=== PATIENT | male | born 1995 | race Caucasian/White ===

== ENCOUNTER 2016-10-15 23:46 | Emergency (ER) | payer MEDICAID ==
[2016-10-16] MEDS ORDERED: Ibuprofen 600 MG Tab PO ONE (00:21)
--- NOTE | 2016-10-16 00:25 | EDM.PDOC ---
ED HPI GENERAL MEDICAL PROBLEM - General Chief Complaint: Head Injury Stated Complaint: POSSIBLE CONCUSSION/HIT HEAD Time Seen by Provider: 10/16/16 00:14 - History of Present Illness INITIAL COMMENTS - FREE TEXT/NARRATIVE: HISTORY AND PHYSICAL: History of present illness: [The patient is a healthy 21-year-old male who presents with complaints of left- sided face head and ear pain that started about 4 hours ago after he fell hitting the area while waveboarding. Patient states he was in his usual state of good health with no systemic complaints when he was going over the top of the wave and then proceeded to go downward and landed on his left side hitting the left side of his head. He did not pass out or blacked out but felt incredibly dizzy and off-balance when it first happened. He doesn't have any facial pain but he has pain in his head pain behind his left eye and mostly pain in his ear. He has had no drainage or bleeding from his nose mouth or ears. He has no neck or back pain. He said no nausea vomiting or any other extremity complaints. He has no chest pain or shortness of breath. Patient has not taken anything for the pain Review of systems: As per history of present illness and below otherwise all systems reviewed and negative. Past medical history: As per history of present illness and as reviewed below otherwise noncontributory. Surgical history: As per history of present illness and as reviewed below otherwise noncontributory. Social history: No reported history of drug or alcohol abuse. Family history: As per history of present illness and as reviewed below otherwise noncontributory. Physical exam: Gen.: Well-developed well-nourished male who is nontoxic and speaking clearly in the ED. Vital signs of been reviewed by me HEENT: Atraumatic, normocephalic, pupils reactive, EOMs intact, there is no evidence of any facial swelling or palpable bony deformities and bite and teeth are intact, negative for conjunctival pallor or scleral icterus, mucous membranes moist, throat clear, neck supple, nontender, trachea midline. There are no midline step-offs in his defects of the cervical spine. The right TM is within normal limits and there is no fluid in external canal. The left TM has no fluid in external canal but there is clearly a perforation located at approximately 1 to 2:00 on the TM with some scant bleeding noted in the region and there is tenderness with this exam. There is no mastoid tenderness. There is no evidence of any external trauma to the ear or the facial the left side and there is no scalp swelling or deformities appreciated in this area. Lungs: Clear to auscultation, breath sounds equal bilaterally, chest nontender. Heart: S1S2, regular rate and rhythm no overt murmurs Abdomen: Soft, nondistended, nontender. NABS Skin: Normal turgor no evidence of any rashes or lesions Genitourinary: Deferred. Rectal: Deferred. Extremities: Atraumatic, negative for cords or calf pain. Neurovascular unremarkable. Full range of motion without any defects or deformities Neuro: Awake, alert, oriented. Cranial nerves II through XII unremarkable. Cerebellum unremarkable. Motor and sensory unremarkable throughout. Exam nonfocal. Diagnostics: CT of the head Therapeutics: Motrin Patient is aware of CT scan results and need for antibiotics, tramadol for pain as well as [id number] pain meds and close follow-up. I've also advised him to place nothing in the ear and get no water in the ear. Impression: Blunt head trauma with mild concussion and perforated left eardrum Definitive disposition and diagnosis as appropriate pending reevaluation and review of above. Left Face Pain Score (Numeric/FACES): 7 - Related Data Allergies Allergy/AdvReac Type Severity Reaction Status Date / Time No Known Allergies Allergy Verified 10/16/16 00:01 Home Meds: Home Meds Etanercept [Enbrel] 50 mg SQ ASDIRECTED 10/16/16 [History] Past Medical History Other Musculoskeletal History: ankyolising spondilitis - Past Surgical History Musculoskeletal Surgical History: Reports: None Social & Family History - Family History Family Medical History: Noncontributory - Tobacco Use Smoking Status *Q: Never Smoker Second Hand Smoke Exposure: No - Caffeine Use Caffeine Use: Reports: Coffee Caffeine Use Comment: "occasionally" - Recreational Drug Use Recreational Drug Use: No ED ROS GENERAL - Review of Systems Review Of Systems: ROS reveals no pertinent complaints other than HPI. ED EXAM, HEAD INJURY - Physical Exam Exam: See Below (See dictation) Course - Vital Signs Last Recorded V/S: Last Vital Signs Temp 36.2 C 10/15/16 23:57 Pulse 56 L 10/15/16 23:57 Resp 18 10/15/16 23:57 BP 137/96 H 10/15/16 23:57 Pulse Ox 100 10/15/16 23:57 - Orders/Labs/Meds Orders: Active Orders 24 hr Category Date Time Status Head wo Cont [CT] Routine Exams 10/16/16 00:42 Taken Meds: Medications Discontinued Medications Generic Name Dose Route Start Last Admin Trade Name Kody PRN Reason Stop Dose Admin Ibuprofen 600 mg 10/16/16 00:21 10/16/16 00:26 Motrin PO 10/16/16 00:22 600 mg ONETIME ONE Administration Departure - Departure Time of Disposition: 02:01 Disposition: Home, Self-Care 01 Condition: Good Clinical Impression: Perforated left tympanic membrane on examination Concussion Qualifiers: Encounter type: initial encounter Loss of consciousness presence/duration: without LOC Qualified Code(s): S06.0X0A - Concussion without loss of consciousness, initial encounter - Discharge Information Referrals: PCP,None [Primary Care Provider] - Forms: ED Department Discharge Additional Instructions: The following information is given to patients seen in the emergency department who are being discharged to home. This information is to outline your options for follow-up care. We provide all patients seen in our emergency department with a follow-up referral. The need for follow-up, as well as the timing and circumstances, are variable depending upon the specifics of your emergency department visit. If you don't have a primary care physician on staff, we will provide you with a referral. We always advise you to contact your personal physician following an emergency department visit to inform them of the circumstance of the visit and for follow-up with them and/or the need for any referrals to a consulting specialist. The emergency department will also refer you to a specialist when appropriate. This referral assures that you have the opportunity for followup care with a specialist. All of these measure are taken in an effort to provide you with optimal care, which includes your followup. Under all circumstances we always encourage you to contact your private physician who remains a resource for coordinating your care. When calling for followup care, please make the office aware that this follow-up is from your recent emergency room visit. If for any reason you are refused follow-up, please contact the [facility] emergency department at and ask to speak to the emergency department charge nurse. [facility] Primary care- Internal Medicine and Family Prct[address] [place] [phone] [facility] Specialty Care - ENT [address] [place] [phone] nothing in the ear including Q-tips and avoid getting water in the ear when you're showering until you are followed up. Please take antibiotics as directed and use [id number] Tylenol/ibuprofen for pain or the tramadol you have been prescribed. Please call and follow-up in the clinic with both primary care and our ENT physician. Return to ER as needed and as discussed. - My Orders Last 24 Hours: My Active Orders 10/16/16 00:42 Head wo Cont [CT] Routine - Assessment/Plan Last 24 Hours: My Active Orders 10/16/16 00:42 Head wo Cont [CT] Routine
[2016-10-16 02:22] VITALS: BP 113/72
--- NOTE | 2016-10-18 10:55 | CT ---
EXAM DATE: 10/15/16 PATIENT'S AGE: 21 Patient: PAULETTE ELLIOTT Facility: [place], [place] Site . Site : 1995 Study: CT Head [id number] 1:25:57 AM Ordering Physician: Josephine Raymond Final Report: INDICATION: Headache TECHNIQUE: CT head without contrast. COMPARISON: None FINDINGS: CSF spaces: Within normal limits for age. Brain parenchyma: The verdugo-white differentiation is normal. No sign of mass, hemorrhage, or midline shift. Skull base and calvarium: The visualized paranasal sinuses and mastoid air cells demonstrate no acute or significant findings. The visualized orbits are grossly unremarkable. No skull fractures. IMPRESSION: Unremarkable noncontrast head CT. Please note that all CT scans at this facility use dose modulation, iterative reconstruction, and/or weight-based dosing when appropriate to reduce radiation dose to as low as reasonably achievable. Dictated by Liberty Li MD @ Oct 16 2016 1:47AM (Electronic Signature) Report Signed by Proxy. MTDD
== END 2016-10-16 02:22 | disposition home or self-care (01) ==
LOC: MW.ED 23:46
DX: S06.0X0A Concussion without loss of consciousness, initial encounter (principal); S09.22XA Traumatic rupture of left ear drum, initial encounter; W01.10XA Fall on same level from slipping, tripping and stumbling with subsequent striking against unspecified object, initial encounter
CPT/HCPCS: 70450; 99283; A9270

== ENCOUNTER 2016-10-20 17:19 | Emergency (ER) | payer MEDICAID ==
[2016-10-20 17:32] VITALS: BP 118/66
--- NOTE | 2016-10-20 17:38 | EDM.PDOC ---
ED HPI GENERAL MEDICAL PROBLEM - General Chief Complaint: Eye Problems Stated Complaint: PAIN EYES Time Seen by Provider: 10/20/16 17:34 Source of Information: Reports: Patient History Limitations: Reports: No Limitations - History of Present Illness INITIAL COMMENTS - FREE TEXT/NARRATIVE: History of present illness: [21-year-old male comes in complaining of a flare of iritis. Patient indicates he has a history of the same and he called his provider in [place] and the provider indicated that he should come in to be seen and gets steroid eye drops as is his usual routine treatment for this patient.] Review of systems: As per history of present illness and below otherwise all systems reviewed and negative. Past medical history: As per history of present illness and as reviewed below otherwise noncontributory. Surgical history: As per history of present illness and as reviewed below otherwise noncontributory. Social history: No reported history of drug or alcohol abuse. Family history: As per history of present illness and as reviewed below otherwise noncontributory. Physical exam: HEENT: Atraumatic, normocephalic, pupils reactive, conjunctival erythema and irritation, mucous membranes moist, throat clear, neck supple, nontender, trachea midline. Lungs: Clear to auscultation, breath sounds equal bilaterally, chest nontender. Heart: S1S2, regular, negative for clicks, rubs, or JVD. Extremities: Atraumatic, Neurovascular unremarkable. Neuro: Awake, alert, oriented. Spoke with local patient registration clerk and it was agreed that patient should go there for further evaluation with potential dilated exam. Diagnostics: [] Therapeutics: [] Impression: [eye pain] Plan: [Referred to ophthalmology clinic for evaluation by Dr. Stanton in approximately 15 minutes] Definitive disposition and diagnosis as appropriate pending reevaluation and review of above. Bilateral Eye Pain Score (Numeric/FACES): 1 - Related Data Allergies Allergy/AdvReac Type Severity Reaction Status Date / Time No Known Allergies Allergy Verified 10/20/16 17:26 Home Meds: Home Meds Etanercept [Enbrel] 50 mg SQ ASDIRECTED 10/16/16 [History] Past Medical History HEENT History: Reports: Other (See Below) Other HEENT History: Left TM perferation Musculoskeletal History: Reports: Other (See Below) Other Musculoskeletal History: ankyolising spondilitis - Past Surgical History Musculoskeletal Surgical History: Reports: None Social & Family History - Family History Family Medical History: Noncontributory - Tobacco Use Smoking Status *Q: Never Smoker Second Hand Smoke Exposure: No - Caffeine Use Caffeine Use: Reports: None Caffeine Use Comment: "occasionally" - Recreational Drug Use Recreational Drug Use: No ED ROS GENERAL - Review of Systems Review Of Systems: See Below (See history of present illness) ED EXAM, GENERAL - Physical Exam Exam: See Below (See history of present illness) Course - Vital Signs Last Recorded V/S: Last Vital Signs Temp 36.7 C 10/20/16 17:26 Pulse 60 10/20/16 17:26 Resp 16 10/20/16 17:26 BP 118/66 10/20/16 17:26 Pulse Ox 96 10/20/16 17:26 Departure - Departure Time of Disposition: 17:37 Disposition: DC/Tfer to Other 70 Condition: Good Clinical Impression: Eye pain - Discharge Information Additional Instructions: The following information is given to patients seen in the emergency department who are being discharged to home. This information is to outline your options for follow-up care. We provide all patients seen in our emergency department with a follow-up referral. The need for follow-up, as well as the timing and circumstances, are variable depending upon the specifics of your emergency department visit. If you don't have a primary care physician on staff, we will provide you with a referral. We always advise you to contact your personal physician following an emergency department visit to inform them of the circumstance of the visit and for follow-up with them and/or the need for any referrals to a consulting specialist. The emergency department will also refer you to a specialist when appropriate. This referral assures that you have the opportunity for follow-up care with a specialist. All of these measure are taken in an effort to provide you with optimal care, which includes your follow-up. Under all circumstances we always encourage you to contact your private physician who remains a resource for coordinating your care. When calling for follow-up care, please make the office aware that this follow-up is from your recent emergency room visit. If for any reason you are refused follow-up, please contact the [facility] Emergency Department at and asked to speak to the emergency department charge nurse. You have had an appointment scheduled for you for more thorough eye evaluation by . He'll be given directions were to go and he will work your eye pain at further
== END 2016-10-20 17:43 | disposition other institution (70) ==
LOC: MW.ED 17:19
DX: H57.13 Ocular pain, bilateral (principal)
CPT/HCPCS: 99282; 99283